=== PATIENT | male | born 2000 | race Two or more races ===

== ENCOUNTER 2025-08-19 17:40 | Emergency (ER) | payer MEDICAID, SELFPAY ==
[2025-08-19 17:50] VITALS: BP 171/95; PULSE 64; RESP 18; TEMP 36.8; O2SAT 99; BMI 35.9
--- NOTE | 2025-08-19 18:35 | EKG_ITS ---
[facility], [place] Test Date: 2025-08-19 Pat Name: PACO ARRIAZA Department: Room: - Gender: Male Sales Representative: : [id number] Requested By: Janie Lorenzo Order Number: [id number] Reading MD: Janie Lorenzo Measurements Intervals [place] Rate: 59 P: 20 [place]: 169 QRS: 90 QRSD: 118 T: 32 QT: 382 QTc: 381 Interpretive Statements SINUS BRADYCARDIA MODERATE INTRAVENTRICULAR CONDUCTION DELAY [110+ ms QRS DURATION] NONSPECIFIC T-WAVE ABNORMALITY No previous ECG available for comparison /[id number]/[email or web address]/[id number]
--- NOTE | 2025-08-19 18:35 | XR_ITS ---
Examination: CT brain head without contrast. 2-D sagittal coronal reconstructions Date and time of exam: August 19, 2025, 1855 hours INDICATIONS: Altered mental status dizziness today CTDI: vol (mGy): 50.1 DLP: (mGycm): 959 Technique: Multiple CT axial sections of the brain have been obtained, 5 mm slice thickness. Contrast has not been administered. 2-D sagittal, coronal reconstructions have been obtained Low dose protocols were performed. One or more of the following dose reduction techniques were used; automated exposure control, adjustment of the mA and/or KV according to patient size, use of iterative reconstruction technique. Findings: No significant ventricular enlargement. Intra-axial or extra-axial hemorrhage density is not seen. No mass effect or midline shift Basal cisterns are not remarkable. Fourth ventricle is midline. Cranial vault intact. Impression: Negative for acute hemorrhage, mass effect or midline shift Advise clinical correlation and follow-up accordingly
[2025-08-19 19:04] LABS: Basophils # (Auto) 0.0 Thou/mm3 (0.0-0.2); Basophils % (Auto) 0 % (0-2.5); Eosinophils # (Auto) 0.1 Thou/mm3 (0.0-0.5); Eosinophils % (Auto) 1 % (0-10); Hematocrit 48.7 % (41.0-53.0); Hemoglobin 16.6 g/dL (13.5-16.0); Immature Granulocytes Auto 0.03 Thou/mm3 (0.00-0.00); Lymphocytes # (Auto) 3.5 Thou/mm3 (1.0-4.8); Lymphocytes % (Auto) 27 % (10-50); Mean Corpuscular HGB Conc 34.1 g/dl (31.0-37.0); Mean Corpuscular Hemoglobin 28.8 pg (25.0-35.0); Mean Corpuscular Volume 85 fL (80-100); Monocytes # (Auto) 0.9 Thou/mm3 (0.0-0.8); Monocytes % (Auto) 7 % (0-12); Neutrophils # (Auto) 8.4 Thou/mm3 (1.8-7.7); Neutrophils % (Auto) 65 % (37-80); Nucleated Red Blood Cell # 0.00 Thou/mm3 (0.00-0.00); Nucleated Red Blood Cell % 0 /100 WBC (0); Platelet Count 296 Thou/mm3 (140-440); RDW Standard Deviation 35.0 fL (35.1-43.9); Red Blood Count 5.76 Miln/mm3 (4.50-5.90); White Blood Count 13.1 Thou/mm3 (3.8-10.6)
[2025-08-19 19:23] LABS: Alanine Aminotransferase 32 U/L (10-49); Albumin, Serum 5.1 gm/dL (3.5-5.0); Albumin/Globulin Ratio 2.0 (1.2-2.2); Alkaline Phosphatase 85 U/L (46-116); Anion Gap 11 (7-16); Aspartate Amino Transferase 22 U/L (0-34); BUN/Creatinine Ratio 8 Ratio (12-20); Bilirubin,Total 0.5 mg/dL (0.3-1.2); Blood Urea Nitrogen 10 mg/dL (9-23); Calcium 9.7 mg/dL (8.3-10.6); Calcium (Corrected) 9.7 mg/dL (8.5-10.1); Carbon Dioxide 26.3 mMol/L (20.0-31.0); Chloride 104 mMol/L (98-107); Creatinine (Component) 1.2 mg/dL (0.6-1.3); Estimated Creatinine Clearance 98.6 mL/min (>60); Globulin 2.6 gm/dL (2.3-3.5); Glucose 97 mg/dL (74-106); Lipase 40 U/L (12-53); Osmolality,Calculated 280 (275-295); Potassium 3.7 mMol/L (3.4-5.1); Sodium 141 mMol/L (136-145); Total Protein 7.7 gm/dL (5.7-8.2); Troponin I < 0.020 ng/mL (0.0-0.045); eGFR > 60 See Note
[2025-08-19 19:51] LABS: Collection Type, Urine Clean Catch; Squamous Epithelial Cell,Urine 0 /hpf (0-5)
[2025-08-19 19:57] LABS: Bilirubin,Urine Negative (Negative); Blood,Urine Negative (Negative); Clarity,Urine Clear (Clear/Hazy); Color,Urine Colorless (Lt Yel-Yel); Glucose, Urine Negative (Negative); Ketones,Urine Negative (Negative); Leukocyte Esterase,Urine Negative (Negative); Nitrite,Urine Negative (Negative); PH,Urine 6.0 (5.0-7.0); Protein,Urine Negative (Neg - Trace); RBC,Urine 1 /hpf (0-3); Specific Gravity,Urine 1.008 (1.001-1.035); Urobilinogen,Urine Negative mg/dL (0.0-1.0); WBC,Urine 1 /hpf (0-5)
[2025-08-19] MEDS: ONDANSETRON ODT 4 MG TABRAP PO (20:24)
[2025-08-19] MEDS: MECLIZINE HCL 25 MG TABLET 50 MG PO (20:25)
--- NOTE | 2025-08-19 20:25 | EDNOTE_ITS ---
ED Dizzyness RME/HPI General Chief Complaint: Dizziness Stated Complaint: DIZZY, TIRED, WEAK, NOT THINKING CLEARLY X 1 WK Time Seen by Provider: 08/19/25 18:32 Arrival date/time: 08/19/25 17:40 This is a case of 24-year-old male with no medical history came in in the emergency room due to dizziness on and off for 1 week spinning in character associated with generalized weakness no headache no numbness no tingling sensation no blurring of vision no chest pain no palpitation Limitations: no limitations Related Data Previous Rx's ?Medication ?Instructions ?Recorded meclizine 25 mg tablet 25 mg PO TID PRN dizziness # 20 tabs 08/19/25 ondansetron HCl 4 mg tablet 4 mg PO Q8H PRN nausea and 08/19/25 vomiting #20 tabs Allergies Allergy/AdvReac Type Severity Reaction Status Date / Time No Known Allergies Allergy Verified 08/19/25 17:43 Review of Systems Review of Systems Systems Reviewed: All systems reviewed, normal except as documented Constitutional Constitutional: Reports system reviewed and no additional complaints, except as documented and Reports as per HPI Eyes Eyes: Reports system reviewed and no additional complaints, except as documented and Reports as per HPI Cardiovascular Cardiovascular: Reports system reviewed and no additional complaints, except as documented and Reports as per HPI Respiratory Respiratory: Reports as per HPI Gastrointestinal Gastrointestinal: Reports system reviewed and no additional complaints, except as documented and Reports as per HPI Genitourinary Genitourinary: Reports system reviewed and no additional complaints, except as documented and Reports as per HPI Musculoskeletal Musculoskeletal: Reports system reviewed and no additional complaints, except as documented and Reports as per HPI Neurologic Neurologic: Reports system reviewed and no additional complaints, except as documented and Reports as per HPI Past Medical History Social History SMOKING STATUS: Never smoker ED Exam General Limitations: Present no limitations General appearance: Present alert, in no apparent distress and other Head Head exam: Present atraumatic, normocephalic and normal inspection Eye Eye exam: Present normal appearance, PERRL, EOMI and other (PERRL EOM intact normal conjunctiva no papilledema no hyphema) ENT ENT exam: Present normal exam, normal oropharynx, mucous membranes moist and other (HEENT exam is normal and unremarkable) Neck Neck exam: Present normal inspection, full ROM, trachea midline and other; Absent tenderness, meningismus, lymphadenopathy or thyromegaly Chest Chest inspection: Present normal inspection and symmetric chest wall rise; Absent tenderness Respiratory Respiratory exam: Present normal lung sounds bilaterally; Absent respiratory distress, wheezes or accessory muscle use Cardiovascular Cardiovascular exam: Present regular rate, normal rhythm and normal heart sounds; Absent bradycardia, tachycardia, irregular rhythm, systolic murmur or diastolic murmur Abdominal Exam Abdominal exam: Present soft and normal bowel sounds; Absent distention, tenderness, guarding, rebound, rigidity, diminished bowel sounds, hyperactive bowel sounds, hypoactive bowel sounds or organomegaly Extremities Exam Extremities exam: Present normal inspection and full ROM Back Exam Back exam: Present normal inspection and full ROM Neurological Exam Neurological exam: Present alert, oriented X3, CN II-XII intact, normal gait, reflexes normal and other (Awake alert oriented x 4 no focal deficit GCS 15/15 steady gait memory intact motor or sensory reflex were normal in all extremities CN II to XII is normal memory intact no facial droop no slurring of speech negative Babinski); Absent motor sensory deficit Psychiatric Psychiatric exam: Present normal affect and normal mood Skin Skin exam: Present warm, dry, intact, normal color and other (Excellent skin turgor) Course Quality Measures none Orders Category Date Time Status EKG (ED ONLY) *Do not use* NOW Care 08/19/25 18:[address] head/brain wo con Stat Exams 08/19/25 18:35 Completed EKG (ED Only) Stat Exams 08/19/25 18:35 Draft CBC Stat Lab 08/19/25 18:50 Completed Comprehensive Metabolic Panel Stat Lab 08/19/25 18:50 Completed Lipase Stat Lab 08/19/25 18:50 Completed Troponin I Stat Lab 08/19/25 18:50 Completed Urinalysis Stat Lab 08/19/25 19:08 Completed Meclizine HCl [Antivert] Med 08/19/25 20:19 Discontinued 50 mg PO X1 ONE Ondansetron Odt [Zofran Odt] Med 08/19/25 20:19 Discontinued 4 mg PO X1 ONE Vital Signs Vital signs: Vital Signs Temperature 98.2 F 08/19/25 17:50 Pulse Rate 64 08/19/25 17:50 Respiratory Rate 18 08/19/25 17:50 Blood Pressure 171/95 H 08/19/25 17:50 Pulse Oximetry (%) 99 08/19/25 17:50 Oxygen Delivery Method Room Air 08/19/25 17:50 Oxygen saturation is 99% in room air BP was rechecked after hydration and Zofran and meclizine noted 135/85 Dizziness MDM Narrative MDM Narrative:: This is a case of 24-year-old male with no medical history came in in the emergency room due to dizziness on and off for 1 week spinning in character associated with generalized weakness no headache no numbness no tingling sensation no blurring of vision no chest pain no palpitation physical examination patient is awake alert oriented not in distress nontoxic looking well-hydrated well-nourished patient is awake alert oriented x 4 no focal deficit GCS 15/15 steady gait memory intact no slurring of speech no facial droop CN II to XII is normal steady gait negative Babinski motor or sensory reflex were normal PERRL EOM intact normal conjunctiva no palpable edema HEENT exam is normal and unremarkable lungs sound is clear no crackles no wheezing no retraction no stridor heart normal rate regular rhythm no murmur blood test showed mild leukocytosis 13.4 possibly due to hydration no anemia kidney and liver function is normal no electrolyte imbalance urinalysis normal CT scan is normal troponin is negative EKG sinus bradycardia at 59 patient blood pressure is still slightly elevated 179/89 but I rechecked the blood pressure after Zofran and meclizine and oral hydration BP noted to be 135/75 patient was advised to follow-up with PCP to be referred to neurologist for dizziness and to monitor blood pressure if blood pressure greater than 160/100 or become symptomatic return to the ER for further evaluation and treatment he also need to start on blood pressure medication diet and exercise is advised Patient was discharged with comfortable condition walking with stable gait. Patient verbalized no further complains explained diagnosis and answered patient question. Patient is comfortable with the proposed management plan including the need to follow up with his/her primary care physician and any specialist if applicable Discussed patient for any urgent condition or worsening sx, He/She needed to go to emergency room immediately or call 911. Patient acknowledge the responsibility to follow up as instructed and to monitor her/his symptoms. For any persistence of the symptoms for more than 3-5 days return precaution advised. Discussed the result of the test and was given printed discharge instruction Patient data External records reviewed:: [facility] previous records Clinical information provided by:: patient Social determinants that could affect healthcare access:: none Patient has the following chronic illnesses:: None How is presenting disease/condition affected by chronic disease/condition?: no chronic disease Evaluation data The following diagnostics were reviewed and interpreted by me:: lab results, radiology exam(s) and EKG tracing(s) Lab and/or radiology exams considered but not ordered:: Reviewed Interpretation Summary: Reviewed Medications / Prescriptions Medications or Prescriptions considered but not ordered:: Given Medication administrations:: Medication Administration History Discontinued Medications Meclizine HCl (Meclizine Hcl 25 Mg Tablet) 50 mg PO X1 ONE Stop: 08/19/25 20:20 Ondansetron HCl (Ondansetron Odt 4 Mg Tabrap) 4 mg PO X1 ONE; Protocol Stop: 08/19/25 20:20 Given Consultations Consultation(s) initiated? (list below): No Diagnosis Dizziness Differential Diagnosis: benign paroxysmal positional vertigo and orthostatic hypotension Most likely diagnosis given after review of the tests above:: Dizziness Admission Indicated Admission indicated?: not indicated Explain why admission is indicated or not indicated:: Not indicated Admission Request Was there a request for admission?: No Admission Attestation Admission request attestation: Not indicated Disposition Plan Disposition Plan: Discharge Discharge Attestation Discharge Attestation: The patient and all family members were given an opportunity to ask questions and understood the discharge instructions. Discharge instructions specifically effects, indications for sooner follow up or return to the emergency department, and the expected course of current diagnosis. Patient condition: Stable Discharge Plan Plan Patient Disposition: HOME (Self Care) Patient condition on transfer: Stable Prescriptions/Referrals Prescriptions/Med Rec: New ondansetron HCl 4 mg tablet 4 mg PO Q8H PRN (Reason: nausea and vomiting) Qty: 20 0RF meclizine 25 mg tablet 25 mg PO TID PRN (Reason: dizziness) Qty: 20 0RF Referrals: No Primary/Family,Physician [Primary Care Provider] - In 1 week Problem List Clinical Impression: Dizziness, Generalized weakness, Elevated BP without diagnosis of hypertension Patient/Caregiver Discharge Instructions Education Materials: ED Dizziness, Uncertain Cause, ED High Blood Pressure ..., ED Weakness (Uncertain Cause) Additional Instructions: Follow-up with your primary care physician in 2 days for reevaluation worsening symptoms or any emergent concern call 911 or go to the nearest emergency room recurrence persistence need to see a neurologist for further evaluation and treatment of dizziness increase water intake keep hydrated Pedialyte Gatorade for hydration is advised check your blood pressure twice a day and record it if your blood pressure greater than 160/100 or become symptomatic return to the emergency room immediately or call 911 you need to see your primary care physician to monitor your blood pressure and possible start on blood pressure Print Language: Kyrgyz Stand Alone Forms: Gabby Award Info., Patient Portal Info Letter PA[employer] Supervising Physician PA/[employer] Supervising Physician: Dr. Lr
== END 2025-08-19 20:39 | disposition home or self-care (01) ==
PROVIDERS: Nurse Practitioner Family; Emergency Provider Emergency Medicine
DX: R42 Dizziness and giddiness (principal)
CPT/HCPCS: 36415; 70450; 80053; 81001; 83690; 84484; 85025; 93005; 99282; Q0162; A9270